=== PATIENT | male | born 1985 | race Caucasian/White ===

== ENCOUNTER 2025-03-12 18:02 | Emergency (ER) | payer OTHER, SELFPAY ==
[2025-03-12 18:07] VITALS: BMI 23.6
[2025-03-12 18:25] LABS: % Eosinophils 3.9 % (0-6); % Immature Granulocytes 0.2 % (0-0.5); % Lymphocytes 41.7 % (20.5-51.1); % Monocytes 10.2 % (1.7-9.3); Absolute Basophils 0.1 10^3/uL (0-0.2); Absolute Eosinophils 0.2 10^3/uL (0-0.7); Absolute Lymphocytes 2.5 10^3/uL (1.2-3.4); Absolute Monocytes 0.6 10^3/uL (0.1-0.6); Absolute Neutrophils 2.5 10^3/uL (1.4-6.5); Hematocrit 40.2 % (39.0-52.0); Hemoglobin 14.4 g/dL (13.0-18.0); Mean Corp Hgb Conc. 35.8 g/dL (33.0-37.0); Mean Corpuscular Hgb 29.6 pg (27.0-31.0); Mean Corpuscular Volume 82.5 fL (80.0-94.0); Mean Platelet Volume 11.1 fL (7.4-10.4); Nucleated Red Blood Cells % 0 % (-); Platelet Count 209 10^3/uL (130-400); Red Blood Cell Count 4.87 10^6/uL (4.70-6.10); Red Cell Dist. Width 12.1 % (11.5-14.5); White Blood Cell Count 5.9 10^3/uL (4.8-10.8)
[2025-03-12 18:43] LABS: ALT (SGPT) 411 U/L (0-50); AST (SGOT) 262 U/L (17-59); Albumin 4.8 g/dl (3.5-5.0); Alkaline Phosphatase 71 U/L (38-126); Blood Urea Nitrogen 16 mg/dl (9-20); Calcium 9.5 mg/dl (8.4-10.2); Carbon Dioxide 26 mmol/L (22-30); Chloride 104 mmol/L (98-107); Estimated Creatinine Clearance 101 ml/min; Glucose 162 mg/dl (70-99); Potassium 3.8 mmol/L (3.5-5.1); Sodium 140 mmol/L (135-145); Total Bilirubin 0.9 mg/dl (0.2-1.3); Total Protein 8.4 g/dl (6.3-8.2); eGFR > 60.00
--- NOTE | 2025-03-12 19:17 | ED.GENMED ---
History of Present Illness
General
Chief Complaint: Fainting Sensation
Source: patient
Exam Limitations: none
Time Seen by Provider: 03/12/25 19:17
History of Present Illness
History of Present Illness:
39-year-old male history of opioid addiction/IVDA presents with shortness of breath and an episode of lightheadedness today. He said shortness of breath for weeks. At that time it was some shortness of breath with exertion. Today shortness of
breath was slightly worse. [place] lightheaded and near syncopal earlier today. No chest pain. Feels better at this time.
Past History
Past History
ED Past Medical History: Other (Opioid addiction/IVDA) and Other (Hepatitis C)
Review of Systems
Review of Systems
All Other Systems: Not applicable
Constitutional: Denies fever or chills
Respiratory: Denies cough or hemoptysis
ABD/GI: Reports no symptoms
Phy Exam
Physical Exam
Physical Exam:
GENERAL: Alert and oriented in no apparent distress
EYE: Orbits normal.
NECK: Supple, no significant adenopathy.
ENT: Pharynx without erythema
CARDIAC: Regular rate and rhythm without any obvious murmurs.
LUNGS: Clear breath sounds,normal
ABDOMEN: Soft, without focal tenderness or distention
NEUROLOGICAL: Alert and oriented , grossly non-focal
SKIN: Warm and dry, no rash or lesion, no discoloration, skin intact.
MUSCULOSKELETAL: No edema,no deformity.Good color
PSYCH: Normal and appropriate interaction.
Course
Orders/Labs/Results
Orders:
Orders
03/12/25 18:06
EKG [Electrocardiogram (*1)] Urgent
Reason for Study: Syncope
EKG- Treatment ONCE
03/12/25 18:11
CBC/With Diff [Complete Blood Count/With Diff] Urgent
CMP [Comprehensive Metabolic Panel] Urgent
Lipase Urgent
Comment: ADD ON
03/12/25 19:18
Add On- LAB Urgent
Tests Added?: lipase
03/12/25 19:24
CXR2 [CR Chest - 2 Views ] Urgent
Comment:
Reason For Exam: Short of breath
03/12/25 19:37
D-Dimer Urgent
Troponin I Urgent
03/12/25 21:25
Electrocardiogram (*1) Stat
Reason for Study: Other
Other Reason for Exam: chest pain
EKG- Treatment ONCE
03/12/25 21:32
Troponin I Urgent
Abnormal Lab Results
03/12/25
18:11
MPV 11.1 H fL
(7.4-10.4)
Monocytes % 10.2 H %
(1.7-9.3)
Glucose 162 H mg/dl
(70-99)
AST 262 H U/L
(17-59)
ALT 411 H U/L
(0-50)
Total Protein 8.4 H g/dl
(6.3-8.2)
03/12/25 18:11
03/12/25 18:11
Vital Signs
Initial and Last Documented VS:
Initial Vital Signs
Temp Pulse Resp
98.2 F 80 15
03/12/25 18:07 03/12/25 18:07 03/12/25 18:07
Last Documented Vital Signs
Temp Pulse Resp BP Pulse Ox
98.2 F 60 14 120/84 98
03/12/25 18:07 03/12/25 23:16 03/12/25 23:16 03/12/25 23:14 03/12/25 23:16
*EKG
Interpreted by ED Provider?: Yes
Interpretation: abnormal
Comparison EKG: no comparison EKG present
Heart Rate: 73
Rate: normal
Rhythm: sinus
[place]: normal axis
Interval: normal interval
QRS Pattern: normal QRS
Ischemia: non-specific ST changes
*Critical Care Note
Total Time (30-74mins, 75-104mins- exclusive of procedures): Not Applicable
Update Note
Update Note:
Patient has remained stable and nontoxic. Repeat EKG normal sinus rhythm at 61 with nonspecific changes. No change from previous EKG. Troponin is negative. D-dimer is negative. Chest x-ray is negative. Discharged to follow-up. Transaminase
elevation secondary to hepatitis C which is known.
ED Attending Note
-
Portions of this chart may have been created with voice recognition software.� Occasional wrong word or��sound alike� substitutions may have occurred due to the inherent limitations of voice recognition software.
Discharge Plan
Departure
Patient Disposition: Home (Routine Discharge)
Date of Disposition: 03/12/25
Time of Disposition: 23:08
Patient with high blood pressure during this ER visit?: No
Discharge Problem:
Transient dyspnea/near syncope, Transaminase elevation/hepatitis C
Instructions: Near Fainting (DC), Shortness of breath in adults - ED discharge instructions
Referrals:
[facility] [Other]
[facility] [Family Provider, General]
Gemini Vidal MD [Non-Admitting Privileges, Psychiatry]
Neelima Alan MD [Active, Cardiology] - Next open appointment
Activity Restrictions/Additional Instructions:
Follow-up closely with the physician/staff at the halfway
To consider call for cardiac follow-up
Continue monitoring the transaminase elevation
Interventions
Interventions:
*Risk Screen - Suicide Last Done: 03/12/25 18:07
*General Assessment Last Done: 03/12/25 18:07
*Neglect/Abuse Screening Last Done: 03/12/25 18:07
*ED- Fall Risk Assessment Last Done: 03/12/25 18:07
ED- Cardiac Assessment Last Done: 03/12/25 23:20
ED- Neurological Assessment Last Done: 03/12/25 23:20
Discharge Date and Time
Print Language: INDONESIAN
[2025-03-12 19:29] VITALS: BP 113/75; BP 119/82
[2025-03-12 19:50] LABS: Lipase 37 U/L (23-300)
[2025-03-12 19:57] LABS: D-Dimer < 0.27 ug/mlFEU (0.00-0.50)
[2025-03-12 20:07] LABS: Troponin I < 0.012 ng/ml
[2025-03-12 22:06] LABS: Troponin I < 0.012 ng/ml
[2025-03-12 23:14] VITALS: BP 120/84
== END 2025-03-12 23:30 | disposition home or self-care (01) ==
LOC: EMR 18:02
PROVIDERS: Emergency Medicine; EMERGENCY PHYSICIAN Emergency Medicine
DX: R06.00 Dyspnea, unspecified (principal); R74.01 Elevation of levels of liver transaminase levels; B19.20 Unspecified viral hepatitis C without hepatic coma; R55 Syncope and collapse; F19.20 Other psychoactive substance dependence, uncomplicated
CPT/HCPCS: 99283; 71046; 80053; 83690; 84484; 85025; 85379; 93005